=== PATIENT | female | born 1955 | race Caucasian/White ===

== ENCOUNTER → 2017-11-06 | Outpatient (CLI) | payer BC ==
--- NOTE | 2017-11-10 10:03 | MM ---
Reason for exam: screening (asymptomatic). Last mammogram was performed 1 year and 11 months ago. History: Patient is postmenopausal. Physical Findings: A clinical breast exam by your physician is recommended on an annual basis and results should be correlated with mammographic findings. MG 3D Screening Mammo W/Cad Bilateral CC and MLO view(s) were taken. Prior study comparison: December 13, 2015, bilateral MG 3d screening mammo w/cad. October 24, 2014, bilateral MG screening mammo w CAD. The breast tissue is heterogeneously dense. This may lower the sensitivity of mammography. Benign appearing bilateral calcifications. No suspicious abnormality. No significant changes when compared with prior studies. ASSESSMENT: Benign, BI-RAD 2 RECOMMENDATION: Routine screening mammogram of both breasts in 1 year.
== END | disposition home or self-care (01) ==
LOC: RADMAMWWP 10:12
PROVIDERS: ATTEND Family Medicine
DX: Z12.31 Encounter for screening mammogram for malignant neoplasm of breast (principal)
CPT/HCPCS: 77063; 77067

== ENCOUNTER → 2018-01-14 | Outpatient (CLI) | payer BC ==
--- NOTE | 2018-01-14 17:20 | BD ---
EXAMINATION TYPE: Axial Bone Density DATE OF EXAM: 01/14/2018 COMPARISON: 2016 CLINICAL HISTORY: 62-year-old female disorder of bone Height: 5'6 1/2 Weight: 126 FRAX RISK QUESTIONS: Secondary Osteoporosis: Current Tobacco Use: y RISK FACTORS HISTORY OF: Family History of Osteoporosis: y Postmenopausal woman: MEDICATIONS: Thyroid Medications: Which medication: Synthroid How Lon years Additional Medications: blood pressure Additional History: EXAM MEASUREMENTS: Bone mineral densitometry was performed using the [employer] System. Bone mineral density as measured about the Lumbar spine is: ----- L1-L4(G/cm2): 1.026 T Score Values are as follows: ----- L2: -1.7 ----- L3: -1.2 ----- L4: -1.5 ----- L1-L4: -1.6 Bone mineral density has: Decreased -3.5% since study of: 12/13/2015 Bone mineral density about the R hip (g/cm2): 0.881 Bone mineral density about the L hip (g/cm2): 0.966 T Score values are as follows: -----R Neck: -1.1 -----L Neck: -0.5 -----R Total: -1.7 -----L Total: -1.1 Bone mineral density has: Decreased -6.8% since study of: 12/13/2015 IMPRESSION: Osteopenia (T Score between -2.5 and -1). There is slightly increased risk of fracture and the patient may be considered for treatment. Re-Screen 2-5 years. NOTE: T-SCORE=SD OF THE YOUNG ADULT MEAN.
== END | disposition home or self-care (01) ==
LOC: RADBDWWP 09:15
PROVIDERS: ATTEND Family Medicine
DX: M85.80 Other specified disorders of bone density and structure, unspecified site (principal)
CPT/HCPCS: 77080

== ENCOUNTER → 2018-02-24 | Outpatient (CLI) | payer MEDICARE, BC ==
--- NOTE | 2018-02-24 13:04 | US ---
EXAMINATION TYPE: US carotid duplex BILAT DATE OF EXAM: 02/24/2018 COMPARISON: NONE CLINICAL HISTORY: I65.21 Occlusion and Stenosis of Rt Carotid. Rt bruit, HTN controlled with meds EXAM MEASUREMENTS: RIGHT: Peak Systolic Velocity (PSV) cm/sec ----- Right CCA: 79.8 ----- Right ICA: 75.4 ----- Right ECA: 58.1 ICA/CCA ratio: 0.9 RIGHT: End Diastole cm/sec ----- Right CCA: 23.7 ----- Right ICA: 32.5 ----- Right ECA: 13.2 LEFT: Peak Systolic Velocity (PSV) cm/sec ----- Left CCA: 72.1 ----- Left ICA: 78.2 ----- Left ECA: 72.9 ICA/CCA ratio: 1.1 LEFT: End Diastole cm/sec ----- Left CCA: 26.7 ----- Left ICA: 30.2 ----- Left ECA: 19.7 VERTEBRALS (direction of flow): Right Vertebral: Antegrade Left Vertebral: Antegrade Rhythm: Normal Plaque seen in right bulb near prox ICA. Plaque seen in left bulb. No elevated velocities or signif icant stenosis. No wall thickening. Grayscale, color Doppler, spectral Doppler imaging performed of the carotid arteries. IMPRESSION: No hemodynamic significant stenosis of the proximal internal carotid arteries bilaterall y by Doppler criteria, an indirect measurement of carotid stenosis
== END ==
LOC: RADUSWWP 09:23
PROVIDERS: ATTEND Family Medicine
DX: I65.21 Occlusion and stenosis of right carotid artery (principal)
CPT/HCPCS: 93880

== ENCOUNTER → 2020-03-20 | Outpatient (CLI) | payer MEDICARE, BC ==
--- NOTE | 2020-03-20 19:11 | BD ---
EXAMINATION TYPE: Axial Bone Density DATE OF EXAM: 03/20/2020 COMPARISON: 01/14/2018 CLINICAL HISTORY: Post menopausal screening Height: 66 IN Weight: 136 LBS FRAX RISK QUESTIONS: Secondary Osteoporosis: Current Tobacco Use: YES RISK FACTORS HISTORY OF: Family History of Osteoporosis: MOTHER Active: YES Postmenopausal woman: AGE 51 MEDICATIONS: Thyroid Medications: YES Which medication: Synthroid How Lon YEARS Osteoporosis Medications: YES Which medication: Fosamax How Lon YEARS Additional Medications: SYNTHROID, FOSAMAX, CALCIUM, VIT D, LOTREL, ATENOLOL, IRON, ALDACTONE, EXAM MEASUREMENTS: Bone mineral densitometry was performed using the [employer] System. Bone mineral density as measured about the Lumbar spine is: ----- L1-L4(G/cm2): 0.965 T Score Values are as follows: ----- L2: -2.4 ----- L3: -1.4 ----- L4: -0.6 ----- L1-L4: -1.8 Bone mineral density has: Increased 0.6% since study of: 01/14/2018 Bone mineral density about the R hip (g/cm2): 0.850 Bone mineral density about the L hip (g/cm2): 0.967 T Score values are as follows: -----R Neck: -1.4 -----L Neck: -0.5 -----R Total: -1.5 -----L Total: -0.8 Bone mineral density has: Increased 3.6% since study of: 01/14/2018 IMPRESSION: Osteopenia (T Score between -2.5 and -1). There is slightly increased risk of fracture and the patient may be considered for treatment. Re-Screen 2-5 years. NOTE: T-SCORE=SD OF THE YOUNG ADULT MEAN.
--- NOTE | 2020-03-22 11:23 | MM ---
Reason for exam: screening (asymptomatic). Last mammogram was performed 2 years and 4 months ago. History: Patient is postmenopausal. Physical Findings: A clinical breast exam by your physician is recommended on an annual basis and results should be correlated with mammographic findings. MG 3D Screening Mammo W/Cad Bilateral CC and MLO view(s) were taken. XCCL view(s) were taken of the right breast. Prior study comparison: November 06, 2017, bilateral MG 3d screening mammo w/cad. December 13, 2015, bilateral MG 3d screening mammo w/cad. The breast tissue is heterogeneously dense. This may lower the sensitivity of mammography. No significant changes when compared with prior studies. ASSESSMENT: Benign, BI-RAD 2 RECOMMENDATION: Routine screening mammogram of both breasts in 1 year.
== END | disposition home or self-care (01) ==
LOC: RADMAMWWP 08:01
PROVIDERS: ATTEND Family Medicine
DX: Z12.31 Encounter for screening mammogram for malignant neoplasm of breast (principal); M85.80 Other specified disorders of bone density and structure, unspecified site
CPT/HCPCS: 77063; 77067; 77080

== ENCOUNTER → 2021-03-28 | Outpatient (CLI) | payer MEDICARE ==
--- NOTE | 2021-03-30 11:38 | MM ---
Reason for exam: screening (asymptomatic). Last mammogram was performed 1 year ago. History: Patient is postmenopausal. Physical Findings: A clinical breast exam by your physician is recommended on an annual basis and results should be correlated with mammographic findings. MG 3D Screening Mammo W/Cad Bilateral CC and MLO view(s) were taken. XCCL view(s) were taken of the right breast. Prior study comparison: March 20, 2020, bilateral MG 3d screening mammo w/cad. November 06, 2017, bilateral MG 3d screening mammo w/cad. December 13, 2015, bilateral MG 3d screening mammo w/cad. The breast tissue is heterogeneously dense. This may lower the sensitivity of mammography. Bilateral benign oil cyst calcifications. Benign vascular calcifications on the right. No significant changes when compared with prior studies. ASSESSMENT: Benign, BI-RAD 2 RECOMMENDATION: Routine screening mammogram of both breasts in 1 year. Patient should continue monthly self breast exams. A negative report should not preclude additional follow up of suspicious palpable abnormalities.
== END | disposition home or self-care (01) ==
LOC: RADMAMWWP 13:28
PROVIDERS: ATTEND Family Medicine
DX: Z12.31 Encounter for screening mammogram for malignant neoplasm of breast (principal); Z78.0 Asymptomatic menopausal state
CPT/HCPCS: 77063; 77067

== ENCOUNTER 2022-02-26 08:35 | Day surgery (SDC) | payer MEDICARE ==
[2022-02-22 11:12] VITALS: BMI 19.9
[2022-02-26 09:34] VITALS: TEMP 98.7
[2022-02-26] MEDS: LACTATED RINGERS 1,000 ML IV SCH ×2 (09:45→09:46)
[2022-02-26] MEDS ORDERED: PROPOFOL 10 MG/ML 20 ML VIAL IV ONE (09:59)
--- NOTE | 2022-02-26 10:20 | P.PCN ---
Date of Procedure: 02/26/22 Procedure(s) Performed: BRIEF HISTORY: Patient is a 67-year-old pleasant white female scheduled for an elective colonoscopy as a part of evaluation of prior history of colon polyps. PROCEDURE PERFORMED: Colonoscopy. PREOPERATIVE DIAGNOSIS: History of colon polyps. IV sedation per Anesthesia. PROCEDURE: After informed consent was obtained, the patient, was brought into the endoscopy unit. IV sedation was administered by Anesthesia under continuous monitoring. Digital rectal examination was normal. Initially the Olympus CF-160 flexible video colonoscope was then inserted in the rectum, gradually advanced into the cecum without any difficulty. Careful examination was performed as the scope was gradually being withdrawn. Ileocecal valve and the appendiceal orifice were visualized and appeared normal. Prep was excellent. Mucosa of the cecum, ascending colon, transverse colon, descending colon, sigmoid colon, and rectum appeared normal. Retroflexion was performed in the rectum and no lesions were seen. The patient tolerated the procedure well. IMPRESSION: Normal-appearing colon from rectum to cecum no evidence of colorectal neoplasia. RECOMMENDATIONS: Findings of this examination were discussed with the patient and has a family.. She was advised to have a repeat screening colonoscopy in 10 years.
[2022-02-26 10:45] VITALS: BP 128/68; PULSE 58; RESP 18
== END 2022-02-26 11:19 | disposition home or self-care (01) ==
LOC: ORWHC2ENDO 08:35
PROVIDERS: ATTEND Internal Medicine Gastroenterology
DX: Z12.11 Encounter for screening for malignant neoplasm of colon (principal); I10 Essential (primary) hypertension; F17.200 Nicotine dependence, unspecified, uncomplicated; E07.9 Disorder of thyroid, unspecified; Z86.010 Personal history of colon polyps; Z79.890 Hormone replacement therapy; Z79.899 Other long term (current) drug therapy
CPT/HCPCS: J2704; G0105; 45378

== ENCOUNTER → 2022-04-25 | Outpatient (CLI) | payer MEDICARE ==
--- NOTE | 2022-04-26 10:01 | MM ---
Reason for Exam: Screening (asymptomatic). Last mammogram was performed 1 year(s) and 1 month(s) ago. Patient History: Menarche at age 12. First Full-Term at age 19. Postmenopausal. Risk Values: Betty 5 year model risk: 1.4%. NCI Lifetime model risk: 4.3%. Prior Study Comparison: 11/06/2017 Bilateral Screening Mammogram, [facility]. 03/20/2020 Bilateral Screening Mammogram, [facility]. 03/28/2021 Bilateral Screening Mammogram, [facility]. Tissue Density: The breast tissue is heterogeneously dense. This may lower the sensitivity of mammography. Findings: Analyzed By CAD. There is no suspicious group of microcalcifications or new suspicious mass in either breast. Overall Assessment: Negative, BI-RAD 1 Management: Screening Mammogram of both breasts in 1 year. A clinical breast exam by your physician is recommended on an annual basis and results should be correlated with mammographic findings. [facility] will attempt to contact patient to return for supplemental views and ultrasound if indicated. Electronically signed and approved by: Aleksey Hinkle DO
== END | disposition home or self-care (01) ==
LOC: RADMAMWWP 11:06
PROVIDERS: ATTEND Family Medicine
DX: Z12.31 Encounter for screening mammogram for malignant neoplasm of breast (principal); Z78.0 Asymptomatic menopausal state
CPT/HCPCS: 77063; 77067

== ENCOUNTER → 2023-05-07 | Outpatient (CLI) | payer MEDICARE ==
--- NOTE | 2023-05-09 12:11 | MM ---
Reason for Exam: Screening (asymptomatic). Last screening mammogram was performed 12 month(s) ago. Patient History: Menarche at age 12. First Full-Term at age 19. Postmenopausal. Risk Values: Betty 5 year model risk: 1.4%. NCI Lifetime model risk: 4.1%. Prior Study Comparison: 03/20/2020 Bilateral Screening Mammogram, [facility]. 03/28/2021 Bilateral Screening Mammogram, [facility]. 04/25/2022 Bilateral MG 3D screening mammo w/cad, [facility]. Tissue Density: The breast tissue is heterogeneously dense. This may lower the sensitivity of mammography. Findings: Analyzed By CAD. There is no suspicious group of microcalcifications or new suspicious mass. Benign-appearing calcifications bilaterally. Overall Assessment: Benign, BI-RAD 2 Management: Screening Mammogram of both breasts in [address] [facility] will attempt to contact patient to return for supplemental views and ultrasound if indicated. Patient should continue monthly self-breast exams. A clinical breast exam by your physician is recommended on an annual basis. This exam should not preclude additional follow-up of suspicious palpable abnormalities. Note on Betty scores and lifetime risk: 1. A Betty score greater than 3% is considered moderate risk. If this is the case, consider specialist referral to assess eligibility for a risk reducing agent. 2. If overall lifetime risk for the development of breast cancer is 20% or higher, the patient may qualify for future screening with alternating mammogram and breast MRI. Electronically signed and approved by: Aleksey Hinkle DO
--- NOTE | 2023-05-09 14:40 | BD ---
EXAMINATION TYPE: Axial Bone Density DATE OF EXAM: 05/07/2023 CLINICAL HISTORY: 68 years old Female. ICD-10 CODE: M859 DISORDER OF BONE DENSITY AND STRUCTURE Height: 65.2in Weight: 131lb FRAX RISK QUESTIONS: Secondary Osteoporosis: Current Tobacco Use: yes RISK FACTORS HISTORY OF: Active: yes Postmenopausal woman: yes Lost more than 2 inches in height since high school: yes MEDICATIONS: Thyroid Medications: Which medication: Synthroid How Long: about 6 years Osteoporosis Medications: Which medication: Fosamax How Long: about 5 years Additional Medications: calcium with vitamin d Additional History: EXAM MEASUREMENTS: Bone mineral densitometry was performed using the [employer] System. Bone mineral density as measured about the Lumbar spine is: ----- L1-L4(G/cm2): 1.071 T Score Values are as follows: ----- L1: -1.9 ----- L2: -1.1 ----- L3: -0.5 ----- L4: -0.4 ----- L1-L4: -0.9 Z Score Values are as follows: ----- L1: 0.0 ----- L2: 0.8 ----- L3: 1.3 ----- L4: 1.4 ----- L1-L4: 0.9 Bone mineral density has: Increased 11% since study of: 03-20-20 Bone mineral density about the R hip (g/cm2): 0.808 Bone mineral density about the L hip (g/cm2): 0.912 T Score values are as follows: -----R Neck: -1.2 -----L Neck: -0.5 -----R Total: -1.6 -----L Total: -0.8 Z Score values are as follows: -----R Neck: 0.6 -----L Neck: 1.3 -----R Total: 0.0 -----L Total: 0.8 Bone mineral density has: Decreased -0.3% since study of: 03-20-20 FRAX%s: The graph provided illustrates a 8.7% chance for a major osteoporotic fx and a 1.8% chance fo r the hips probability for fx in 10 years time. IMPRESSION: Osteopenia (T Score between -2.5 and -1). There is slightly increased risk of fracture and the patient may be considered for treatment. Re-Screen 2-5 years. NOTE: T-SCORE=SD OF THE YOUNG ADULT MEAN.
== END | disposition home or self-care (01) ==
LOC: RADMAMWWP 13:51
PROVIDERS: ATTEND Family Medicine
DX: Z12.31 Encounter for screening mammogram for malignant neoplasm of breast (principal); M85.89 Other specified disorders of bone density and structure, multiple sites; Z78.0 Asymptomatic menopausal state
CPT/HCPCS: 77063; 77067; 77080

== ENCOUNTER → 2024-05-10 | Outpatient (CLI) | payer MEDICARE ==
--- NOTE | 2024-05-11 09:18 | MM ---
Reason for Exam: Screening (asymptomatic). Last mammogram was performed 1 year(s) and 1 month(s) ago. Patient History: Menarche at age 12. First Full-Term at age 19. Postmenopausal. Risk Values: Betty 5 year model risk: 1.4%. NCI Lifetime model risk: 4.0%. Prior Study Comparison: 03/28/2021 Bilateral Screening Mammogram, [facility]. 04/25/2022 Bilateral MG 3D screening mammo w/cad, [facility]. 05/07/2023 Bilateral MG 3D screening mammo w/cad, [facility]. Tissue Density: The breasts are heterogeneously dense, which may obscure small masses. Findings: Analyzed By CAD. Benign oil cysts and vascular calcifications. There is no suspicious group of microcalcifications or new suspicious mass in either breast. Overall Assessment: Benign, BI-RAD 2 Management: Screening Mammogram of both breasts in 1 year. Patient should continue monthly self-breast exams. A clinical breast exam by your physician is recommended on an annual basis. This exam should not preclude additional follow-up of suspicious palpable abnormalities. Note on Betty scores and lifetime risk: 1. A Betty score greater than 3% is considered moderate risk. If this is the case, consider specialist referral to assess eligibility for a risk reducing agent. 2. If overall lifetime risk for the development of breast cancer is 20% or higher, the patient may qualify for future screening with alternating mammogram and breast MRI. [facility], , 05/11/2024 9:15 AM. Electronically signed and approved by: Tata Andino M.D. Radiologist
== END | disposition home or self-care (01) ==
LOC: RADMAMWWP 10:17
PROVIDERS: ATTEND Family Medicine
DX: Z12.31 Encounter for screening mammogram for malignant neoplasm of breast (principal); Z78.0 Asymptomatic menopausal state; R92.333 Mammographic heterogeneous density, bilateral breasts
CPT/HCPCS: 77063; 77067